=== PATIENT | female | born 1965 | race Caucasian/White ===

== ENCOUNTER 2017-09-08 05:10 | Inpatient (IN) ==
[2017-08-25 11:24] LABS: Basophils # 0.1 10*3/uL (0.0-0.2); Basophils % 0.7 % (0.0-0.8); Eosinophils # 0.3 10*3/uL (0.0-0.87); Eosinophils % 2.9 % (0.00-10.9); Hematocrit 41.4 VOL% (35.7-47.0); Hemoglobin 13.7 GM/DL (12.0-16.0); Immature Granulocytes % 0.3 %; Immature Granulocytes Absolute 0.03 #; Lymphocytes # 3.1 10*3/uL (1.4-4.0); Lymphocytes % 31.7 % (21.3-54.2); Mean Corpuscular HGB Conc 33.1 GM/DL (32-36); Mean Corpuscular Hemoglobin 26 PG (27-34); Mean Corpuscular Volume 79.2 FL (87-102); Mean Platelet Volume 10.2 FL (9.6-12.0); Monocytes # 0.8 10*3/uL (0.11-0.8); Monocytes % 7.9 % (1.7-12.7); Neutrophils # 5.5 10*3/uL (1.4-7.4); Neutrophils % 56.5 % (38.7-73.9); Platelet Count 284 T/CUMM (130-400); Red Blood Count 5.23 MC/CUMM (3.8-5.5); Red Cell Distribution Width 16.1 % (9.3-17.3); White Blood Count 9.8 T/CUMM (4-12)
[2017-08-25 11:37] LABS: INR 0.9; Partial Thromboplastin Time 24.5 SECS (0-40)
[2017-08-25 11:45] LABS: Apearance,Urine CLEAR (Clear); Bilirubin,Urine Negative (Negative); Blood, Urine Negative (Negative); Glucose,Urine (UA) >=500 mg/dL (Negative); Ketones,Urine Negative (Negative); Nitrite,Urine Negative (Negative); Protein,Urine Negative; RBC,Urine 1 /HPF (0-4); Squamous Epithelial Cell,Urine Occasional /HPF (0-10); Urine Color Yellow (Yellow); Urine Specific Gravity 1.011 (1.001-1.035); Urine Urobilinogen < 2.0 EU/DL (0.2-1.0)
[2017-08-25 11:57] LABS: Albumin 3.8 G/DL (3.4-5.0); Bilirubin,Total 1.4 MG/DL (0.2-1.0); Osmolality,Calculated 276.5 MOS/KG (273-304); Potassium 4.4 MMOL/L (3.5-5.1); Total Protein 7.5 G/DL (6.4-8.3)
[2017-09-08] MEDS ORDERED: VANCOMYCIN INJ 1,000 MG in SODIUM CHLORIDE 0.9% 250 ML IV ONE (06:30)
[2017-09-08] MEDS ORDERED: ceFAZolin 1,000 MG in SYRINGE 1 EACH IV ONE (06:30)
[2017-09-08] MEDS ORDERED: DIAZEPAM 5 MG TABLET PO ONE (06:47)
[2017-09-08] MEDS ORDERED: SCOPOLAMINE 1.5 MG PATCH TRANSDERM ONE ×2 (06:47→07:27)
[2017-09-08] MEDS ORDERED: FAMOTIDINE 20 MG TABLET PO ONE (06:47)
[2017-09-08] MEDS ORDERED: BUPIVACAINE SPINAL 0.75% 2 ML AMP SPINAL ONE (07:14)
[2017-09-08] MEDS ORDERED: DIAZEPAM 5 MG TABLET ONE (07:27)
[2017-09-08] MEDS ORDERED: FAMOTIDINE 20 MG TABLET ONE (07:27)
[2017-09-08] MEDS ORDERED: VANCOMYCIN 1,000 MG VIAL ONE (07:27)
[2017-09-08] MEDS ORDERED: ceFAZolin 1,000 MG VIAL ONE (07:27)
[2017-09-08] MEDS: LACTATED RINGERS 1,000 ML IV SCH (07:40)
[2017-09-08] MEDS ORDERED: MORPHINE 10 MG/10 ML VIAL ONE (08:20)
[2017-09-08] MEDS ORDERED: TRANEXAMIC ACID 1,000 MG/10 ML VIAL ONE (09:00)
[2017-09-08] MEDS ORDERED: PROMETHAZINE 25 MG/1 ML VIAL IM PRN (09:48)
[2017-09-08] MEDS ORDERED: BISACODYL 10 MG SUPP RECTAL PRN (09:48)
[2017-09-08] MEDS ORDERED: NALOXONE 0.4 MG/ML VIAL IV PRN (09:48)
[2017-09-08] MEDS ORDERED: TEMAZEPAM 7.5 MG CAPSULE PO PRN (09:48)
[2017-09-08] MEDS ORDERED: MAGNESIUM HYDROXIDE SUSP 30 ML UDCUP PO PRN (09:48)
[2017-09-08] MEDS ORDERED: diphenhydrAMINE CAP 25 MG CAPSULE PO PRN (09:48)
[2017-09-08] MEDS ORDERED: ONDANSETRON 4 MG/2 ML VIAL IV PRN (09:48)
[2017-09-08] MEDS ORDERED: LACTULOSE 20 GM/30 ML UDCUP PO PRN (09:48)
[2017-09-08] MEDS ORDERED: NITROGLYCERIN SL 0.4 MG TABLET SL PRN (09:52)
[2017-09-08] MEDS ORDERED: ROPIVACAINE 0.5% 30 ML VIAL ONE (09:58)
[2017-09-08] MEDS ORDERED: fentaNYL 100 MCG/2 ML VIAL ONE (10:14)
[2017-09-08] MEDS ORDERED: PROPOFOL 200 MG/20 ML VIAL IV ONE (10:14)
[2017-09-08] MEDS ORDERED: KETAMINE 500 MG/10 ML VIAL ONE (10:15)
[2017-09-08] MEDS: MORPHINE PCA 30 MG/30 ML SYRINGE IV SCH (10:15)
[2017-09-08] MEDS ORDERED: SODIUM CHLORIDE 0.9% 100 ML IV ONE (10:15)
[2017-09-08] MEDS ORDERED: ACETAMINOPHEN 1,000 MG/100 ML VIAL IV ONE (10:15)
[2017-09-08] MEDS ORDERED: LACTATED RINGERS 1,000 ML IV ONE (10:15)
[2017-09-08] MEDS ORDERED: buPROPion 75 MG TABLET PO ONE (13:55)
[2017-09-08] MEDS: IBUPROFEN 400 MG TABLET PO PRN (14:52)
[2017-09-08] MEDS: ceFAZolin 1,000 MG in SYRINGE 1 EACH IV SCH ×2 (15:05→23:07)
[2017-09-08] MEDS ORDERED: DEXTROSE 50% 25 GM/50 ML VIAL IV PRN (15:47)
[2017-09-08] MEDS ORDERED: GLUCAGON 1 MG VIAL IM PRN (15:47)
[2017-09-08] MEDS: METFORMIN HCL PO SCH (16:13)
[2017-09-08] MEDS: CANAGLIFLOZIN PO SCH (16:13)
[2017-09-08] MEDS: INSULIN LISPRO 100 UNIT/ML SUBCUT SCH ×2 (16:16→21:12)
[2017-09-08] MEDS: oxyCODONE IR 5 MG TABLET PO PRN ×2 (17:50→22:46)
[2017-09-08] MEDS: MORPHINE 4 MG/1 ML VIAL IV PRN (20:54)
[2017-09-08] MEDS: busPIRone 10 MG TABLET PO SCH (20:59)
[2017-09-08] MEDS: traZODone 50 MG TABLET PO SCH (20:59)
[2017-09-08] MEDS: CILOSTAZOL 50 MG TABLET PO SCH (20:59)
[2017-09-08] MEDS: DOCUSATE SODIUM 100 MG CAPSULE PO SCH (20:59)
[2017-09-08] MEDS: MAGNESIUM CHLORIDE 64 MG TABLET PO SCH (20:59)
[2017-09-08] MEDS: ATORVASTATIN 40 MG TABLET PO SCH (20:59)
[2017-09-08] MEDS: TICAGRELOR 90 MG TABLET PO SCH (21:00)
[2017-09-09] MEDS: oxyCODONE IR 5 MG TABLET PO PRN ×2 (04:25→08:37)
[2017-09-09] MEDS: IBUPROFEN 400 MG TABLET PO PRN (04:35)
[2017-09-09] MEDS: FONDAPARINUX 2.5 MG/0.5 ML SYRINGE SUBCUT SCH (05:22)
[2017-09-09] MEDS: MORPHINE 4 MG/1 ML VIAL IV PRN ×4 (05:53→23:45)
[2017-09-09 07:53] LABS: Basophils # 0.1 10*3/uL (0.0-0.2); Basophils % 0.4 % (0.0-0.8); Eosinophils # 0.1 10*3/uL (0.0-0.87); Eosinophils % 0.7 % (0.00-10.9); Hematocrit 34.9 VOL% (35.7-47.0); Hemoglobin 11.3 GM/DL (12.0-16.0); Immature Granulocytes % 0.4 %; Immature Granulocytes Absolute 0.05 #; Lymphocytes # 2.1 10*3/uL (1.4-4.0); Lymphocytes % 16.2 % (21.3-54.2); Mean Corpuscular HGB Conc 32.4 GM/DL (32-36); Mean Corpuscular Hemoglobin 26 PG (27-34); Mean Corpuscular Volume 80.6 FL (87-102); Mean Platelet Volume 10.5 FL (9.6-12.0); Monocytes # 1.4 10*3/uL (0.11-0.8); Monocytes % 10.7 % (1.7-12.7); Neutrophils # 9.4 10*3/uL (1.4-7.4); Neutrophils % 71.6 % (38.7-73.9); Platelet Count 195 T/CUMM (130-400); Red Blood Count 4.33 MC/CUMM (3.8-5.5)
[2017-09-09] MEDS: INSULIN LISPRO 100 UNIT/ML SUBCUT SCH ×4 (08:02→21:54)
[2017-09-09] MEDS: METFORMIN HCL PO SCH ×2 (08:08→17:54)
[2017-09-09] MEDS: CANAGLIFLOZIN PO SCH ×2 (08:08→17:54)
[2017-09-09] MEDS: TICAGRELOR 90 MG TABLET PO SCH ×2 (08:12→21:58)
[2017-09-09] MEDS: LISINOPRIL 5 MG TABLET PO SCH (08:13)
[2017-09-09 08:28] LABS: Calcium 7.9 MG/DL (8.5-10.1); Osmolality,Calculated 273.7 MOS/KG (273-304); Potassium 3.6 MMOL/L (3.5-5.1)
[2017-09-09] MEDS: MULTIVITAMIN (CENTRUM) TABLET PO SCH (08:33)
[2017-09-09] MEDS: MAGNESIUM CHLORIDE 64 MG TABLET PO SCH ×2 (08:33→21:53)
[2017-09-09] MEDS: CILOSTAZOL 50 MG TABLET PO SCH ×2 (08:33→21:52)
[2017-09-09] MEDS: DOCUSATE SODIUM 100 MG CAPSULE PO SCH ×2 (08:33→21:53)
[2017-09-09] MEDS: ASPIRIN EC 81 MG TABLET PO SCH (08:34)
[2017-09-09] MEDS: buPROPion 75 MG TABLET PO SCH ×2 (08:34→21:54)
[2017-09-09] MEDS: SERTRALINE 50 MG TABLET PO SCH (08:34)
[2017-09-09] MEDS: PANTOPRAZOLE 40 MG TABLET PO SCH (08:34)
[2017-09-09] MEDS: busPIRone 10 MG TABLET PO SCH ×2 (08:36→21:54)
[2017-09-09] MEDS: LACTATED RINGERS 1,000 ML IV SCH (08:53)
[2017-09-09] MEDS: MORPHINE PCA 30 MG/30 ML SYRINGE IV SCH (16:12)
[2017-09-09] MEDS: traZODone 50 MG TABLET PO SCH (21:52)
[2017-09-09] MEDS: ATORVASTATIN 40 MG TABLET PO SCH (21:53)
[2017-09-10] MEDS: MORPHINE 4 MG/1 ML VIAL IV PRN ×6 (03:03→21:24)
[2017-09-10] MEDS: oxyCODONE IR 5 MG TABLET PO PRN ×4 (05:08→23:43)
[2017-09-10] MEDS: FONDAPARINUX 2.5 MG/0.5 ML SYRINGE SUBCUT SCH (06:26)
[2017-09-10] MEDS: LACTATED RINGERS 1,000 ML IV SCH (06:28)
[2017-09-10] MEDS: INSULIN LISPRO 100 UNIT/ML SUBCUT SCH ×4 (07:30→21:48)
[2017-09-10] MEDS: CANAGLIFLOZIN PO SCH ×2 (08:00→17:17)
[2017-09-10] MEDS: METFORMIN HCL PO SCH ×2 (08:00→17:17)
[2017-09-10] MEDS: DOCUSATE SODIUM 100 MG CAPSULE PO SCH ×2 (10:50→21:23)
[2017-09-10] MEDS: PANTOPRAZOLE 40 MG TABLET PO SCH (10:50)
[2017-09-10] MEDS: MULTIVITAMIN (CENTRUM) TABLET PO SCH (10:50)
[2017-09-10] MEDS: busPIRone 10 MG TABLET PO SCH ×2 (10:50→21:23)
[2017-09-10] MEDS: MAGNESIUM CHLORIDE 64 MG TABLET PO SCH ×2 (10:50→21:23)
[2017-09-10] MEDS: buPROPion 75 MG TABLET PO SCH ×2 (10:50→21:23)
[2017-09-10] MEDS: TICAGRELOR 90 MG TABLET PO SCH ×2 (10:50→21:24)
[2017-09-10] MEDS: SERTRALINE 50 MG TABLET PO SCH (10:50)
[2017-09-10] MEDS: CILOSTAZOL 50 MG TABLET PO SCH ×2 (10:50→21:23)
[2017-09-10] MEDS: LISINOPRIL 5 MG TABLET PO SCH (10:50)
[2017-09-10] MEDS: ASPIRIN EC 81 MG TABLET PO SCH (10:58)
[2017-09-10] MEDS: traZODone 50 MG TABLET PO SCH (21:23)
[2017-09-10] MEDS: ATORVASTATIN 40 MG TABLET PO SCH (21:23)
[2017-09-11] MEDS: MORPHINE 4 MG/1 ML VIAL IV PRN ×3 (05:57→19:58)
[2017-09-11] MEDS: INSULIN LISPRO 100 UNIT/ML SUBCUT SCH ×4 (07:59→20:46)
[2017-09-11] MEDS: TICAGRELOR 90 MG TABLET PO SCH ×2 (08:42→20:04)
[2017-09-11] MEDS: LISINOPRIL 5 MG TABLET PO SCH (08:42)
[2017-09-11] MEDS: PANTOPRAZOLE 40 MG TABLET PO SCH (08:42)
[2017-09-11] MEDS: DOCUSATE SODIUM 100 MG CAPSULE PO SCH ×2 (08:43→20:12)
[2017-09-11] MEDS: MULTIVITAMIN (CENTRUM) TABLET PO SCH (08:43)
[2017-09-11] MEDS: busPIRone 10 MG TABLET PO SCH ×2 (08:43→20:13)
[2017-09-11] MEDS: MAGNESIUM CHLORIDE 64 MG TABLET PO SCH ×2 (08:43→20:12)
[2017-09-11] MEDS: SERTRALINE 50 MG TABLET PO SCH (08:43)
[2017-09-11] MEDS: CILOSTAZOL 50 MG TABLET PO SCH ×2 (08:43→20:11)
[2017-09-11] MEDS: ASPIRIN EC 81 MG TABLET PO SCH (08:43)
[2017-09-11] MEDS: buPROPion 75 MG TABLET PO SCH ×2 (08:43→20:13)
[2017-09-11] MEDS: METFORMIN HCL PO SCH ×2 (08:48→18:38)
[2017-09-11] MEDS: CANAGLIFLOZIN PO SCH ×2 (08:48→18:38)
[2017-09-11] MEDS: oxyCODONE IR 5 MG TABLET PO PRN ×3 (09:21→23:06)
[2017-09-11] MEDS: ATORVASTATIN 40 MG TABLET PO SCH (20:07)
[2017-09-11] MEDS: traZODone 50 MG TABLET PO SCH (20:13)
[2017-09-12] MEDS: MORPHINE 4 MG/1 ML VIAL IV PRN ×2 (02:42→06:23)
[2017-09-12] MEDS: INSULIN LISPRO 100 UNIT/ML SUBCUT SCH ×2 (07:40→12:55)
[2017-09-12] MEDS: CANAGLIFLOZIN PO SCH (07:42)
[2017-09-12] MEDS: METFORMIN HCL PO SCH (07:42)
[2017-09-12] MEDS: busPIRone 10 MG TABLET PO SCH (09:51)
[2017-09-12] MEDS: MAGNESIUM CHLORIDE 64 MG TABLET PO SCH (09:51)
[2017-09-12] MEDS: SERTRALINE 50 MG TABLET PO SCH (09:52)
[2017-09-12] MEDS: oxyCODONE IR 5 MG TABLET PO PRN (09:52)
[2017-09-12] MEDS: CILOSTAZOL 50 MG TABLET PO SCH (09:52)
[2017-09-12] MEDS: buPROPion 75 MG TABLET PO SCH (09:52)
[2017-09-12] MEDS: LISINOPRIL 5 MG TABLET PO SCH (09:52)
[2017-09-12] MEDS: TICAGRELOR 90 MG TABLET PO SCH (09:53)
[2017-09-12] MEDS: MULTIVITAMIN (CENTRUM) TABLET PO SCH (09:53)
[2017-09-12] MEDS: PANTOPRAZOLE 40 MG TABLET PO SCH (09:53)
[2017-09-12] MEDS: ASPIRIN EC 81 MG TABLET PO SCH (09:53)
[2017-09-12] MEDS: DOCUSATE SODIUM 100 MG CAPSULE PO SCH (09:53)
[2017-09-12 14:50] VITALS: BP 126/92
== END 2017-09-12 14:35 | disposition home health service (06) | DRG 470 ==
LOC: N.OR 05:10 → N.SDSINP 05:11 → N.3E 10:41
PROVIDERS: ADMIT Orthopaedic Surgery; ATTEND Orthopaedic Surgery